=== PATIENT | female | born 1955 | race Caucasian/White ===

== ENCOUNTER 2023-10-23 08:14 | Inpatient (IN) | payer MEDICARE, OTHER ==
[~2023-10-23] VITALS: Ht 167.6 cm; Wt 75.4 kg
[2023-10-23] MEDS ORDERED: ATIV1TAB10 PO (08:46)
[2023-10-23] MEDS ORDERED: ROSU10TA61 PO (08:46)
[2023-10-23] MEDS: MORPHINE 4 MG/ML 1ML VIAL IV PRN (09:00)
[2023-10-23] MEDS: NS 1,000 ML IV SCH (09:00)
[2023-10-23 09:10] LABS: HEMATOCRIT 40.9 % (36.0-47.0); HEMOGLOBIN 13.4 g/dl (12.0-15.5); MEAN CORPUSCULAR HEMOGLOBIN 29.3 pg (27.0-33.0); MEAN CORPUSCULAR HGB CONC 32.8 g/dl (32.0-36.5); MEAN CORPUSCULAR VOLUME 89.5 fl (80.0-96.0); PLATELET COUNT, AUTOMATED 198 10^3/uL (150-450); RED BLOOD COUNT 4.57 10^6/uL (4.00-5.40); WHITE BLOOD COUNT 7.1 10^3/uL (4.0-10.0)
[2023-10-23 09:27] LABS: BLOOD UREA NITROGEN 13 MG/DL (9-23); CARBON DIOXIDE LEVEL 32 MMOL/L (20-31); CHLORIDE LEVEL 106 MMOL/L (98-107); CREATININE FOR GFR 0.57 MG/DL (0.55-1.30); GLOMERULAR FILTRATION RATE > 60.0 (>45); GLUCOSE, FASTING 140 MG/DL (74-106); POTASSIUM SERUM 4.4 MMOL/L (3.5-5.1); SODIUM LEVEL 143 MMOL/L (136-145)
[2023-10-23] MEDS: diazePAM 10MG/2ML SYRINGE IV ONE (10:07)
[2023-10-23] MEDS: ONDANSETRON 4MG 2ML VIAL IV PRN (11:26)
[2023-10-23] MEDS: KETOROLAC 30 MG/ML 1ML VIAL IV PRN (11:27)
[2023-10-23] MEDS: CYCLOBENZAPRINE 5MG TABLET PO PRN (12:05)
[2023-10-23] MEDS ORDERED: HOME MED LIST COMPLETE! XX SCH ×2 (12:15→18:10)
[2023-10-23 13:30] VITALS: BP 135/84; TEMP 97.9; O2SAT 95
[2023-10-23] MEDS: MORPHINE 2 MG/ML 1ML VIAL IV PRN (13:48)
[2023-10-23] MEDS: PROMETHAZINE 25MG/ML 1ML VIAL IV PRN (19:07)
[2023-10-23 20:00] VITALS: BP 139/85; TEMP 97.5; O2SAT 92
[2023-10-23] MEDS: DOCUSATE SODIUM 100MG CAPSULE PO SCH (21:00)
[2023-10-24 04:00] VITALS: BP 123/75; TEMP 97.7; O2SAT 92
[2023-10-24 07:21] LABS: BASO % 0.1 % (0.0-1.0); HEMATOCRIT 38.1 % (36.0-47.0); HEMOGLOBIN 12.5 g/dl (12.0-15.5); LYMPH % 10.1 % (24.0-44.0); MEAN CORPUSCULAR HEMOGLOBIN 29.3 pg (27.0-33.0); MEAN CORPUSCULAR HGB CONC 32.8 g/dl (32.0-36.5); MEAN CORPUSCULAR VOLUME 89.4 fl (80.0-96.0); MONO # 0.7 10^3/uL (0.0-0.8); MONO % 7.8 % (2.0-8.0); NEUTROPHILS # 7.7 10^3/uL (1.5-8.5); NEUTROPHILS % 81.8 % (36.0-66.0); PLATELET COUNT, AUTOMATED 191 10^3/uL (150-450); RED BLOOD COUNT 4.26 10^6/uL (4.00-5.40); WHITE BLOOD COUNT 9.4 10^3/uL (4.0-10.0)
[2023-10-24 07:46] LABS: BLOOD UREA NITROGEN 16 MG/DL (9-23); CARBON DIOXIDE LEVEL 32 MMOL/L (20-31); CHLORIDE LEVEL 104 MMOL/L (98-107); CREATININE FOR GFR 0.66 MG/DL (0.55-1.30); GLOMERULAR FILTRATION RATE > 60.0 (>45); GLUCOSE, FASTING 112 MG/DL (74-106); SODIUM LEVEL 141 MMOL/L (136-145)
[2023-10-24] MEDS ORDERED: fentaNYL 100 MCG/2 ML INJECTION IV PRN ×3 (08:10→12:40)
[2023-10-24] MEDS ORDERED: HYDROMORPHONE HCL 0.5 MG/ 0.5 ML SYRINGE IV PRN ×2 (08:10→12:40)
[2023-10-24] MEDS ORDERED: ONDANSETRON 4MG 2ML VIAL IV PRN (08:10)
[2023-10-24] MEDS ORDERED: LORazepam 0.5 MG TAB PO PRN (08:45)
[2023-10-24] MEDS: ONDANSETRON 4MG 2ML VIAL IV ONE (09:00)
[2023-10-24] MEDS ORDERED: propofoL 200 MG/20 ML VIAL As Ordered ONE (10:44)
[2023-10-24] MEDS ORDERED: MIDAZOLAM INJ 2MG/2ML VIAL As Ordered ONE (10:44)
[2023-10-24] MEDS ORDERED: LIDOCAINE 2% 100MG/5ML SDV (FOR ANES.) As Ordered ONE (10:44)
[2023-10-24] MEDS ORDERED: fentaNYL 100 MCG/2 ML INJECTION As Ordered ONE (10:44)
[2023-10-24] MEDS ORDERED: KETAMINE HCL 200MG/20ML VIAL As Ordered ONE (11:22)
[2023-10-24] MEDS: ceFAZolin 2 GM/D5W 50 ML IV BAG As Ordered ONE (11:50)
[2023-10-24] MEDS ORDERED: PHENYLephrine 500MCG 5ML (100MCG/ML) SYRINGE As Ordered ONE (11:51)
[2023-10-24] MEDS ORDERED: ePHEDrine SULFATE 25 MG/5 ML(5MG/ML) SYRINGE As Ordered ONE (12:00)
[2023-10-24] MEDS ORDERED: VASOPRESSIN INJ 20UNITS/ML 1ML VIAL As Ordered ONE (12:13)
[2023-10-24] MEDS ORDERED: ACETAMINOPHEN 1000MG 100ML IV BAG As Ordered ONE (12:44)
[2023-10-24] MEDS ORDERED: ONDANSETRON 4MG 2ML VIAL As Ordered ONE (12:44)
[2023-10-24] MEDS: LR 1,000 ML IV SCH (13:46)
[2023-10-24 20:46] VITALS: BP 127/68; TEMP 98.1; O2SAT 91
[2023-10-24] MEDS: ceFAZolin SOD 2 GM in IV 1 EA IV SCH (21:56)
[2023-10-25] MEDS: ACETAMINOPHEN TAB 650MG DOSE (2X325MG) PO PRN (01:00)
[2023-10-25 02:00] VITALS: BP 128/67; TEMP 98.6; O2SAT 89
[2023-10-25 04:47] VITALS: BP 131/65; TEMP 97.7; O2SAT 94
[2023-10-25 07:00] LABS: BASO % 0.1 % (0.0-1.0); EOS % 0.1 % (0.0-3.0); HEMATOCRIT 30.5 % (36.0-47.0); LYMPH # 1.1 10^3/uL (1.5-5.0); MEAN CORPUSCULAR HEMOGLOBIN 29.2 pg (27.0-33.0); MEAN CORPUSCULAR HGB CONC 33.1 g/dl (32.0-36.5); MEAN CORPUSCULAR VOLUME 88.2 fl (80.0-96.0); MONO # 0.7 10^3/uL (0.0-0.8); MONO % 9.7 % (2.0-8.0); NEUTROPHILS # 5.3 10^3/uL (1.5-8.5); NEUTROPHILS % 73.7 % (36.0-66.0); PLATELET COUNT, AUTOMATED 165 10^3/uL (150-450); RED BLOOD COUNT 3.46 10^6/uL (4.00-5.40); WHITE BLOOD COUNT 7.1 10^3/uL (4.0-10.0)
[2023-10-25 07:07] LABS: HEMOGLOBIN 10.1 g/dl (12.0-15.5)
[2023-10-25 07:30] LABS: BLOOD UREA NITROGEN 15 MG/DL (9-23); CALCIUM LEVEL 8.3 MG/DL (8.3-10.6); CARBON DIOXIDE LEVEL 29 MMOL/L (20-31); CHLORIDE LEVEL 102 MMOL/L (98-107); CREATININE FOR GFR 0.63 MG/DL (0.55-1.30); GLOMERULAR FILTRATION RATE > 60.0 (>45); GLUCOSE, FASTING 145 MG/DL (74-106); POTASSIUM SERUM 3.4 MMOL/L (3.5-5.1); SODIUM LEVEL 138 MMOL/L (136-145)
[2023-10-25] MEDS ORDERED: PERCOCET 5MG/325MG TAB PO PRN (07:35)
[2023-10-25] MEDS: POTASSIUM CHLORIDE 10MEQ SR TABLET PO ONE (08:41)
[2023-10-25] MEDS ORDERED: PERCOCET PO (12:01)
[2023-10-25] MEDS ORDERED: SENN1TAB85 PO (12:18)
[2023-10-25] MEDS ORDERED: ECOT81TA5 PO (12:18)
== END 2023-10-25 13:55 | disposition home health service (06) | DRG 482 ==
LOC: M ED 08:14 → EDBD 08:14 → M ED INP 10:49 → M MS5PR 13:30
PROVIDERS: ADMIT Internal Medicine Nephrology; ATTEND Internal Medicine Nephrology
PROC: 0QS634Z Reposition Right Upper Femur with Internal Fixation Device, Percutaneous Approach (ICD-10-PCS; principal; 2023-10-24 12:00)
DX: S72.144A Nondisplaced intertrochanteric fracture of right femur, initial encounter for closed fracture (principal); S72.24XA Nondisplaced subtrochanteric fracture of right femur, initial encounter for closed fracture; V18.0XXA Pedal cycle driver injured in noncollision transport accident in nontraffic accident, initial encounter; Y92.9 Unspecified place or not applicable; F41.9 Anxiety disorder, unspecified; E78.5 Hyperlipidemia, unspecified; Z88.5 Allergy status to narcotic agent; Z88.8 Allergy status to other drugs, medicaments and biological substances; Z90.79 Acquired absence of other genital organ(s); Z90.49 Acquired absence of other specified parts of digestive tract; Z79.899 Other long term (current) drug therapy

== ENCOUNTER → 2023-11-07 | Outpatient (CLI) | payer MEDICARE ==
[~2023-11-07] MED LIST: ATIV1TAB10 PO; ECOT81TA5 PO; PERCOCET PO; ROSU10TA61 PO; SENN1TAB85 PO
== END ==
LOC: M SOG 07:55
PROVIDERS: ATTEND Orthopaedic Surgery
DX: S72.141D Displaced intertrochanteric fracture of right femur, subsequent encounter for closed fracture with routine healing (principal); Z47.89 Encounter for other orthopedic aftercare

== ENCOUNTER → 2023-12-07 | Outpatient (CLI) | payer MEDICARE | LOC: M SOG 12:58 | PROVIDERS: ATTEND Orthopaedic Surgery | DX: S72.141D Displaced intertrochanteric fracture of right femur, subsequent encounter for closed fracture with routine healing (principal); Z47.89 Encounter for other orthopedic aftercare ==

== ENCOUNTER → 2024-01-23 | Outpatient (CLI) | payer MEDICARE | LOC: M SOG 07:58 | PROVIDERS: ATTEND Orthopaedic Surgery | DX: S72.141A Displaced intertrochanteric fracture of right femur, initial encounter for closed fracture (principal); Z47.89 Encounter for other orthopedic aftercare; Y93.9 Activity, unspecified; Y92.9 Unspecified place or not applicable ==